=== PATIENT | male | born 2000 | race Caucasian/White ===

== ENCOUNTER 2020-06-16 11:48 | Emergency (ER) | payer BC ==
[~2020-06-16] VITALS: Ht 167.6 cm; Wt 70.5 kg
[2020-06-16 11:55] VITALS: Ht 167.6 cm; Wt 70.5 kg
[2020-06-16 12:15] LABS: BASOPHILS 0.1 % (0-2); EOSINOPHILS 0.2 % (0-7); HEMATOCRIT 46.1 % (42.0-54.0); HEMOGLOBIN 15.9 g/dL (13.5-17.5); IMMATURE GRANULOCYTES 0.2 % (0-5); LYMPHOCYTE ABS# 0.64 10x3/uL (1.32-3.57); MCH 29.3 pg (26.0-34.0); MCHC 34.5 g/dL (31.0-37.0); MCV 84.9 fL (80.0-100.0); MEAN PLATELET VOLUME 11.3 fL (7.4-10.4); MONOCYTES 4.6 % (2-11); NEUTROPHILS 89.9 % (40-80); PLATELET COUNT 195 10x3/uL (130-400); RBC 5.43 10x6/uL (4.20-6.10); RDW 12.9 % (11.5-14.5); WBC 12.7 10x3/uL (4.8-10.8)
[2020-06-16 12:24] LABS: CALC OSMOLALITY 274 mosm/kg (275-300); CALCIUM 8.9 mg/dL (8.5-10.1); CARBON DIOXIDE 21.6 mmol/L (21.0-32.0); CHLORIDE - SERUM 104 mmol/L (98-107); CREATININE - SERUM 1.1 mg/dL (0.6-1.3); GLUCOSE 106 mg/dL (74-106); POTASSIUM - SERUM 3.5 mmol/L (3.5-5.1); SODIUM 136 mmol/L (136-145); UREA NITROGEN 21 mg/dL (7-18); eGFR NON AFRICAN AMERICAN 90 mL/min (90-120)
[2020-06-16 12:33] LABS: ALBUMIN 4.3 g/dL (3.4-5.0); ALKALINE PHOSPHATASE 69 U/L (30-120); ALT (SGPT) 24 U/L (10-68); AMYLASE - SERUM 42 U/L (25-115); BILIRUBIN - TOTAL 1.49 mg/dL (0.2-1.3); LIPASE 71 U/L (73-393); PROTEIN - SERUM 7.8 g/dL (6.4-8.2); TROPONIN-I < 0.017 ng/mL (0.000-0.060)
[2020-06-16] MEDS ORDERED: ZOFRAN ODT4 MG/UDTAB PO (12:56)
[2020-06-16 13:13] VITALS: BP 126/78
== END 2020-06-16 13:14 | disposition home or self-care (01) ==
LOC: D.ER 11:48
PROVIDERS: Family Medicine
DX: E86.0 Dehydration (principal); R11.2 Nausea with vomiting, unspecified; T75.89XA Other specified effects of external causes, initial encounter; J45.909 Unspecified asthma, uncomplicated